=== PATIENT | female | born 1975 | race Caucasian/White ===

== ENCOUNTER 2017-02-22 10:17 | Emergency (ER) | payer BC, MEDICAID ==
[~2017-02-22] VITALS: Ht 162.6 cm; Wt 56.1 kg
[~2017-02-22 10:17] MED LIST: BUPR-175 PO; LORTA5 PO
[2017-02-22 10:28] VITALS: BP 113/79; PULSE 83; RESP 15; TEMP 97.9; O2SAT 97
--- NOTE | 2017-02-22 10:37 | PD ---
HPI Chief Complaint: Headache Time Seen by Provider: 10:32 Travel History International Travel<30 days: No Contact w/Intl Traveler<30days: No Traveled to known affect area: No History of Present Illness HPI 41-year-old female here with complaint of headache. One week ago patient had gradual onset of headache radiating from the neck into the occiput. This was bilateral, though worse on the left. Over the last week the headache has come and gone, but is now radiating from the occiput to the parietal and retro- orbital region on the left. No associated photophobia, but phonophobia is present. No nausea, vomiting, visual changes. Patient tried a single dose of 600 mg Motrin without improvement of her symptoms. She used to get headaches quite frequently when she was younger, this feels somewhat similar but just longer in duration. No nocturnal symptoms, neck stiffness, fevers or chills. PFSH Past Medical History Autoimmune Disease: Yes (FACTOR V LEIDEN) Anxiety: Yes Depression: Yes Cancer: No Cardiovascular Problems: No Diminished Hearing: No Endocrine: No Genitourinary: Yes (ENDOMETRIOSIS) Hepatitis: No Hiatal Hernia: Yes Immune Disorder: Yes (FIBROMYALGIA) Musculoskeletal: No Neurologic: No Psychiatric: No Respiratory: No Immunizations Current: Yes ?: Not : 2 Para: 1 Miscarriage: 0 : 0 Past Surgical History Abdominal Surgery: Yes (CHOLY) Body Medical Devices: BREAST IMPLANTS Cardiac Surgery: No Cholecystectomy: Yes Endocrine Surgery: No Gynecologic Surgery: Yes (LAPAROSCOPY 2 FOR ENDOMITRIOSIS) Hysterectomy: Yes Joint Replacement: No Pacemaker: No Other Surgery: Yes (BREAST AUGMENTATION, HAND SX) Social History Alcohol Use: Yes ("very rarely") Tobacco Use: No Substance Use: No Allergies-Medications (Allergen,Severity, Reaction): Coded Allergies: Latex (Verified Allergy, Intermediate, Rash, 02/22/17) Adhesives (Verified Allergy, Unknown, 02/22/17) Percocet (Verified Adverse Reaction, Intermediate, Itching, 02/22/17) Reported Meds & Prescriptions Reported Meds & Active Scripts Active Hydrocodone/Acetaminophen 5 mg/325 mg 1 Tab 1 Tab PO Q6H PRN Reported Wellbutrin (Bupropion HCl) 75 Mg Tab 75 Mg PO DAILY Review of Systems Except as stated in HPI: all other systems reviewed are Neg Physical Exam Narrative GENERAL: Well-appearing female in no acute distress SKIN: Focused skin assessment warm/dry. HEAD: Atraumatic. Normocephalic. EYES: Pupils equal and round. EOMI without nystagmus. No scleral icterus. No injection or drainage. ENT: No nasal bleeding or discharge. Mucous membranes pink and moist. TMs clear bilaterally. NECK: Supple without nuchal rigidity CARDIOVASCULAR: Regular rate and rhythm. RESPIRATORY: No accessory muscle use. MUSCULOSKELETAL: Gait normal NEUROLOGICAL: Awake and alert. No obvious cranial nerve deficits. Motor grossly within normal limits. Normal speech. PSYCHIATRIC: Appropriate mood and affect; insight and judgment normal. Data Data Last Documented VS Vital Signs Date Time Temp Pulse Resp B/P Pulse Ox O2 Delivery O2 Flow Rate FiO2 02/22/17 10:28 97.9 83 15 113/79 97 Orders Diphenhydramine Inj (Benadryl Inj) (02/22/17 10:45) Metoclopramide Inj (Reglan Inj) (02/22/17 10:45) MDM Medical Decision Making Medical Screen Exam Complete: Yes Emergency Medical Condition: Yes Medical Record Reviewed: Yes Differential Diagnosis 41-year-old female with one week of gradual intermittent headache. Primarily left-sided parietal and retro-orbital at this time though began in the neck. Differential includes tension headache, cluster headache, migraine headache.Patient has been afebrile, no neck stiffness or noctural headaches, is well-appearing, with a normal neurologic examination. This makes infection and subarachnoid hemorrhage very unlikely. There is not enough evidence to pursue these diagnoses. Narrative Course Patient given IM Benadryl, Reglan with improvement of symptoms and discharged home. Diagnosis Primary Impression: Tension headache Referrals: Primary Care Physician as needed Additional Instructions: Excedrin Migraine as needed for headache. Med/Other Pt SpecificInfo: No Change to Meds Disposition: 01 DISCHARGE HOME Condition: Stable Christie Washington MD Feb 22, 2017 10:37
[2017-02-22] MEDS ORDERED: MENE0.3T3 PO (10:39)
[2017-02-22] MEDS ORDERED: METOCLOPRAMIDE HCL 10 MG/2 ML VIAL IM ONE (10:45)
[2017-02-22] MEDS ORDERED: diphenhydrAMINE HCL 50 MG/ML VIAL IM ONE (10:45)
== END 2017-02-22 10:57 | disposition home or self-care (01) ==
LOC: PHED 10:17
DX: G44.209 Tension-type headache, unspecified, not intractable (principal); D68.51 Activated protein C resistance; F41.8 Other specified anxiety disorders; M79.7 Fibromyalgia
CPT/HCPCS: 96372; 99283; J1200; J2765